=== PATIENT | female | born 1995 | race Caucasian/White ===

== ENCOUNTER 2024-01-06 08:02 | Emergency (ER) | payer MEDICAID ==
[2024-01-06] MEDS: Ketorolac 30 MG/ML SDV IVPUSH ONE (09:18)
[2024-01-06] MEDS: Sodium Chloride 0.9% 10 ML Syringe FLUSH PRN (09:19)
[2024-01-06] MEDS: HYDROmorphone 0.5 MG/0.5 ML Syringe IVPUSH ONE ×2 (09:33→10:18)
== END 2024-01-06 10:48 | disposition home or self-care (01) ==
LOC: JD.ED 08:02
DX: S16.1XXA Strain of muscle, fascia and tendon at neck level, initial encounter (principal); F17.210 Nicotine dependence, cigarettes, uncomplicated; Z79.899 Other long term (current) drug therapy; Z88.2 Allergy status to sulfonamides; Z88.0 Allergy status to penicillin; Z88.1 Allergy status to other antibiotic agents; Z88.8 Allergy status to other drugs, medicaments and biological substances; Z88.6 Allergy status to analgesic agent; X58.XXXA Exposure to other specified factors, initial encounter
CPT/HCPCS: 72125; 96374; 96375; 96376; 99283; J1170; J1885; J3360; J3490; 99284